=== PATIENT | male | born 1940 | race Caucasian/White ===

== ENCOUNTER 2023-08-03 17:18 | Emergency (ER) | payer OTHER, SELFPAY ==
--- NOTE | 2023-08-03 17:54 | ED.GENMED ---
History of Present Illness
General
Chief Complaint: CODE
Source: ambulance crew
Time Seen by Provider: 08/03/23 17:35
History of Present Illness
History of Present Illness:
83-year-old male brought to the emergency room by ambulance in cardiac arrest. Paramedics state that the patient had contacted a neighbor or friend stating that he was having severe chest pain and could not get out of bed. Patient had also
evidently contacted his daughter, Geena. Friend arrived and called 911. When medics arrived they found the patient to be unresponsive on the bed with agonal respirations. During their very initial interaction the patient stopped breathing and they
were unable to detect a pulse. ACLS protocol was initiated. Patient had several doses of epinephrine as well as cardioversion x 2. Patient arrives here to the emergency room and PEA. No other history available.
Past History
Past History
ED Past Medical History: CAD, NIDDM and TN
ED Past Surgical History: Cardiac (Stents X3)
Social History
Tobacco: Former smoker
Alcohol: None
Personal:
Living: alone
Phy Exam
Physical Exam
Physical Exam:
CODE EXAM:
VITAL SIGNS: No palpable blood pressure, no pulses, no respiration.
GENERAL EXAM: Mottled
EYES: Pupils fixed
ENT: Patient intubated
NECK: No venous distention
RESPIRATORY: Equal breath sounds
CARDIAC: Absent heart sounds. Giuseppe device administering CPR
VASCULAR: Absent pulses
ABDOMEN: Soft no masses
GUAIAC: Not done
MUSCULOSKELETAL: Unable to evaluate strength
EXTREMITIES: No edema or contractures
SKIN: No rash
PSYCH: Mood, affect unable to evaluate
MDM/Problems Addressed
Differential Diagnosis Includes:
Acute TN, PE, cardiac dysrhythmia
MDM/Problems Addressed:
Patient presents in cardiac arrest despite ACLS protocol provided in the prehospital setting. Initial rhythm PEA with a rate of about 40. There is no known history of end-stage renal disease with dialysis however given the PEA the patient was
given an additional dose of epinephrine, bicarb, calcium gluconate. Several minutes of CPR were provided after these medications were administered. The patient's rhythm decompensated from PEA to asystole. He had no spontaneous respirations. No
pulses were palpable or detectable with Doppler. Once the rhythm converted to asystole patient was pronounced at 1726.
I did speak to the patient's daughter, Geena James. She was unable to come to the emergency. [facility] I spoke with Miladis Luna who is the nurse practitioner on-call. They
will certify the .
Also discussed with Edson Vargas with the medical examiners office who released the body to family.
*Critical Care Note
Total Time (30-74mins, 75-104mins- exclusive of procedures): 20 min
comment:
Critical care statement: A total of 20 minutes of critical care time was provided for this patient. This includes management of unstable vital signs, evaluation of the patient at bedside, reviewing the patient's pertinent medical records, discussion
with consultants, review of old EKGs and review of pertinent medical records. This time with separate from time utilized to perform the aforementioned documented procedures
ED Attending Note
-
Portions of this chart may have been created with voice recognition software.� Occasional wrong word or��sound alike� substitutions may have occurred due to the inherent limitations of voice recognition software.
Discharge Plan
Departure
Patient Disposition:
Date of Disposition: 08/03/23
Time of Disposition: 18:00
Discharge Problem:
Cardiac arrest
Prescriptions:
No Action
L-Arginine
1 tab PO DAILY
acetaminophen 325 MG tablet
650 mg PO Q4HPRN PRN (Reason: fever >/= 100.4F, HARTMAN,mild pain) 0RF
guaifenesin [Mucus Relief ER] 600 MG tablet extended release 12hr
600 mg PO Q12 0RF
Referrals:
UNKNOWN - PT DOES,NOT KNOW [Family Provider] -
Interventions
Interventions:
*Nursing Disposition Last Done: 08/03/23 19:29
Discharge Date and Time
Discharge Date/Time: 08/03/23 19:30
== END 2023-08-03 19:30 | disposition expired ==
LOC: EMR 17:18
PROVIDERS: EMERGENCY PHYSICIAN Emergency Medicine
DX: I46.9 Cardiac arrest, cause unspecified (principal); N18.6 End stage renal disease; Z87.891 Personal history of nicotine dependence
CPT/HCPCS: 99285; 92950